=== PATIENT | female | born 1945 | race Caucasian/White ===

== ENCOUNTER 2016-07-27 12:58 | Emergency (ER) | payer MEDICARE, BC ==
[2016-07-27 13:41] LABS: BLOOD UREA NITROGEN 24 mg/dL (7-17); CALCIUM 10.6 mg/dL (8.4-10.2); CHLORIDE 97 mmol/L (98-107); EST GLOMERULAR FILTRATION RATE 47 mL/min; GLUCOSE 99 mg/dL (70-100); MAGNESIUM 1.8 mg/dL (1.6-2.3); POTASSIUM 4.3 mmol/L (3.5-5.1); SODIUM 132 mmol/L (137-145)
[2016-07-27 14:03] LABS: TROPONIN I < 0.012 ng/mL (0.00-0.034)
[2016-07-27 14:29] LABS: HEMATOCRIT 39.9 % (36.0-48.0); HEMOGLOBIN 13.8 g/dL (12.0-16.0); MEAN CELL VOLUME 93.3 fL (80.0-100.0); MEAN CORPUS. HGB CONCENTRATION 34.6 g/dL (32.0-36.0); MEAN CORPUSCULAR HEMOGLOBIN 32.3 pg (29.0-35.0); MEAN PLATELET VOLUME 7.8 fL (7.4-10.4); PLATELET COUNT 255 X 10^3uL (130-440); RED BLOOD COUNT 4.28 X 10^6uL (4.20-6.10); WHITE BLOOD COUNT 8.2 X 10^3uL (3.9-10.7)
[2016-07-27 14:30] LABS: BAND% (Manual) 7 % (0.0-1.0); BASOPHIL % (Manual) 0 % (0.0-2.0); EOSINOPHIL % (Manual) 0 % (0.0-6.0); LYMPHOCYTE % (Manual) 11 % (20.0-40.0); MONOCYTE % (Manual) 3 % (2.0-10.0); NEUTROPHIL % (Manual) 79 % (54.0-75.0); PLATELET ESTIMATE ADEQUATE
--- NOTE | 2016-07-27 16:38 | RADIOLOGY REPORT ---
HISTORY: COMPARISON: None. FINDINGS: 1 view of the chest obtained. Heart size and mediastinal contours are normal except for mild prominen ce of the aortic arch. Mild interstitial prominence is noted without focal infiltrate, effusion, or e camille. No pneumothorax. Mild thoracic scoliosis convex to the left is evident. IMPRESSION: No acute findings within the chest. Final Electronic Signature: This report was electronically signed by Logan Funk MD on 07/27/2016 4 :36 PM. ramona /
--- NOTE | 2016-07-27 16:43 | MRI REPORT ---
HISTORY: Difficult speaking and facial droop. TIA. COMPARISON: None. TECHNIQUE: Multiplanar multi sequential imaging of the brain obtained without IV gadolinium. FINDINGS: BRAIN: The midline structures are normal. No atrophy. Scattered nonspecific foci of FLAIR signal abno rmality in the cerebral white matter. No diffusion restriction. No hemorrhage. No hydrocephalus. No mass effect or midline shift. The major intracranial flow-voids are patent. BONES AND EXTRACRANIAL SOFT TISSUES: The orbits are unremarkable. The paranasal sinuses and mastoid a ir cells are clear. No gross bone lesion is identified. IMPRESSION: Normal brain MRI. Saroj Waller MD Neuroradiologist Final Electronic Signature: This report was electronically signed by Eldon Waller MD on 07/27/2016 4:40 PM. robby /
--- NOTE | 2016-07-27 16:45 | MRI REPORT ---
History: Stroke COMPARISON: None. TECHNIQUE: Multiplanar multi sequential imaging of the carotid and vertebral vessels obtained with and without c ontrast. 20cc Magnevist contrast. FINDINGS: The visualized portions of the aortic arch, innominate artery, and left and right subclavian arteries are widely patent. The common carotid arteries are widely patent. The external carotid arteries ar e widely patent. The vertebral arteries are widely patent. The internal carotid arteries are widely patent. IMPRESSION: Unremarkable MR angiogram of the carotid and vertebral vessels. No evidence for significant stenosis or occlusion. All stenosis percentages reference the distal internal carotid artery. Final Electronic Signature: This report was electronically signed by Logan Funk MD on 07/27/2016 4 :42 PM. ramona /
--- NOTE | 2016-07-27 16:50 | MRI REPORT ---
HISTORY: Transient ischemic attack. COMPARISON: Same day MRI brain TECHNIQUE: 3D time of flight imaging of the cra[place] of [place] was performed without contrast. FINDINGS: Internal carotid arteries: The skull base, cavernous and supraclinoid portions of the internal caroti d arteries are patent. Middle cerebral arteries: The middle cerebral arteries are widely patent Anterior cerebral arteries: A 3.4 x 2 x 3 mm outpouching at the anterior communicating artery is cons istent with a small saccular aneurysm. Vertebrobasilar system: The intradural vertebral arteries, basilar artery and posterior fossa branch vessels appear patent. Posterior cerebral arteries: The posterior cerebral arteries are widely patent. No aneurysm or arteriovenous malformation is seen. IMPRESSION: 1. No evidence of intracranial branch occlusion. 2. Small incidental anterior communicating artery aneurysm. Findings were called to ordering provider at 4:50 PM. Final Electronic Signature: This report was electronically signed by Eldon Waller MD on 07/27/2016 4:47 PM. robby /
--- NOTE | 2016-07-27 16:59 | ER NURSING DOCUMENTATION ---
Nurse's Notes [facility] Name:Kenisha Velásquez Age:71 yrs Sex:Female :1945 Arrival Date:07/27/2016 Time:12:58 BedTrauma-C Private MD: Diagnosis:Carotid TIA Presentation: 07/27 13:02 Acuity: OLIVA 2 13:47 Presenting complaint: Patient states: Pt [place] [employer] [address] [place] and felt rh dizzy, had left sided weakness and couldn't hold her water bottle. She then sat down ate some granola bars, drank water and returned to baseline and hiked out of the trail. Transition of care: Other RMNP. Time Last Known Well for patient was 1030. 13:47 Method Of Arrival: Walk In Triage Assessment: 13:49 The onset of the patients symptoms was more than three but less than six hours ago. rh General: Appears in no apparent distress, Behavior is cooperative. Pain: Denies pain. EENT: Oral mucosa is dry. Neuro: Level of Consciousness is awake, alert, obeys commands, Reports dizziness. Cardiovascular: Capillary refill < 3 seconds. Respiratory: Airway is patent Respiratory effort is even, unlabored, Respiratory pattern is regular, symmetrical, Denies shortness of breath. GI: Abdomen is non- distended Denies diarrhea, nausea, vomiting. : No deficits noted. Derm: Skin is intact, is healthy with good turgor, Skin is pink, warm & dry. Musculoskeletal: Circulation, motion, and sensation intact Range of motion intact in all extremities. Historical: - Allergies: SULFA (SULFONAMIDES); - Home Meds: 1. Aspirin Oral 2. Synthroid Oral - PMHx: vertigo; HYPOTHYROIDISM; - PSHx: LEFT HAND SURGERY ; - Tetanus: < 10 years. - Ebola Screening: : Patient negative for fever greater than or equal to 101.5 degrees Fahrenheit, and additional compatible Ebola Virus Disease symptoms. - Immunization history: Flu Vaccine < 1 year. - Social history: Smoking status: Patient states was never smoker of tobacco. Screenin:52 Infectious Disease Risk None. Abuse screen: Denies threats or abuse. Denies injuries rh from another. Nutritional screening: No deficits noted. Assessment: 13:52 See Triage Assessment done by same RN. 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 rh 16:12 Reassessment: Pt states feeling great, no complaints at this time. Waiting for MRI rh results . Vital Signs: 13:05 BP 121 / 74; Pulse 65; Resp 20; Temp 98.3(O); Pulse Ox 91% ; Weight 61.23 kg; Height 5 rh ft. 5 in. (165.10 cm); Pain 0/10; 14:20 BP 121 / 63; Pulse 65; Resp 18; Pulse Ox 98% on 2 lpm NC; rh 16:12 BP 123 / 68; Pulse 64; Resp 15; Pulse Ox 96% on R/A; Pain 0/10; rh 16:55 BP 124 / 67; Pulse 61; Resp 16; Pulse Ox 94% on R/A; Pain 0/10; lc 13:05 Body Mass Index 22.46 (61.23 kg, 165.10 cm) rh ED Course: 13:00 Patient arrived in ED. ama 13:02 Glo Hudson is Primary Nurse. rh 13:02 Triage completed. rh 13:05 Notified ED Physician of patient's arrival and chief complaint. Dr. Smith notified. rh 13:10 Inserted peripheral IV: 20 gauge in right antecubital area and blood collected. Oxygen rh Oxygen administration via nasal cannula @ 2L/min. 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 Pulse ox on. NIBP on. rh 13:16 Aren Smith MD is Attending Physician. tl1 13:16 EKG done. (by ED staff). Reviewed by Aren Smith MD. rh 13:52 Valuables Remains with patient Patient has correct armband on for positive rh identification. Placed in gown. Bed in low position. Call light in reach. Side rails up X 1. 14:03 Port Xray Completed. pm1 Administered Medications: 13:55 Drug: NS 0.9% 1000 ml; Route: IV; Rate: bolus; Site: right antecubital; rh 14:35 Follow up: IV Status: Completed infusion; IV Intake: 1000ml rh Intake: 14:35 IV: 1000ml; Total: 1000ml. rh Outcome: 16:42 Discharge ordered by . tl1 16:55 Discharged to home ambulatory, with family. 16:55 Condition: stable 16:55 Discharge Assessment: Patient awake, alert and oriented x 3. No cognitive and/or functional deficits noted. Patient verbalized understanding of disposition instructions. 16:55 Discharge instructions given to patient, family, Instructed on discharge instructions, follow up and referral plans. Demonstrated understanding of instructions, COPY OF MRI GIVEN 16:55 IV D/Chuy 16:58 Patient left the ED. janelle Signatures: Sharon Harrison, KINGA RN Lola Hooks pm1 Jad Nunez, Reg Reg Aren Vick MD MD tl1 Glo Hudson
--- NOTE | 2016-07-29 16:58 | ER PHYSICIAN DOCUMENTATION ---
Physician Documentation [facility] Name:Kenisha Velásquez Age:71 yrs Sex:Female :1945 Arrival Date:07/27/2016 Time:12:58 BedTrauma-C Private MD: Aren Antony Disposition: 07/29 10:31 Chart complete. tl1 Disposition: 07/27/16 16:42 Discharged to Home/Self Care. Impression: Carotid TIA. - Condition is Good. - Discharge Instructions: TIA. - Medical Reconciliation form form. - Follow up: Private Physician; When: 4- 6 days; Reason: Recheck today's complaints, Continuance of care. - Problem is new. - Symptoms have improved. 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 13:15 The patient presents to the emergency department with weakness of the a speech or tl1 higher order brain function problem. Onset: The symptom(s)/episode began/occurred suddenly, just prior to arrival. 13:20 She is an active healthy lady from [place], a regular runner, with a h/o vertigo tl1 and transent global amnesia, who is here visiting. [place] [employer] [place]30, she developed left arm weakness and slurred speech. These symptoms lasted about 10 minutes and resolved after she sat down and had a little bit to ear and drink. she was able to hike out, and after some initial resistance, was convinced to come to the ED for evaluation. She says she is fine now and has no new symptoms.. Historical: - Allergies: SULFA (SULFONAMIDES); - Home Meds: 1. Aspirin Oral 2. Synthroid Oral - PMHx: vertigo; HYPOTHYROIDISM; - PSHx: LEFT HAND SURGERY ; - Tetanus: < 10 years. - Ebola Screening: : Patient negative for fever greater than or equal to 101.5 degrees Fahrenheit, and additional compatible Ebola Virus Disease symptoms. - Immunization history: Flu Vaccine < 1 year. - Social history: Smoking status: Patient states was never smoker of tobacco. ROS: 13:20 Neuro: Positive for speech changes, weakness. tl1 13:20 All other systems are negative. Exam: 13:20 Constitutional: This is a well developed, well nourished patient who is awake, alert, tl1 and in no acute distress. Head/Face: Normocephalic, atraumatic. Eyes: Pupils equal round and reactive to light, extra-ocular motions intact. Lids and lashes normal. Conjunctiva and sclera are non-icteric and not injected. Cornea within normal limits. Periorbital areas with no swelling, redness, or edema. Neck: Trachea midline, no thyromegaly or masses palpated, and no cervical lymphadenopathy. Supple, full range of motion without nuchal rigidity, or vertebral point tenderness. No Meningismus. Cardiovascular: Regular rate and rhythm with a normal S1 and S2. No gallops, murmurs, or rubs. Normal PMI, no JVD. No pulse deficits. Respiratory: Lungs have equal breath sounds bilaterally, clear to auscultation and percussion. No rales, rhonchi or wheezes noted. No increased work of breathing, no retractions or nasal flaring. 13:20 Abdomen/GI: Soft, non-tender, with normal bowel sounds. No distension or tympany. No tl1 guarding or rebound. No evidence of tenderness throughout. 13:20 Neuro: Orientation: is normal, Mentation: is normal, Memory: is normal, Cranial nerves: CN II- XII are normal as tested, Motor: strength is 5/5 in all extremities, Sensation: light touch sense is normal, Gait: is steady, at a normal pace, without difficulty, appropriate for age, Deep tendon reflexes are 2+ (normal) in the right brachioradialis, right patellar, left brachioradialis and left patellar. Vital Signs: 13:05 BP 121 / 74; Pulse 65; Resp 20; Temp 98.3(O); Pulse Ox 91% ; Weight 61.23 kg; Height 5 rh ft. 5 in. (165.10 cm); Pain 0/10; 14:20 BP 121 / 63; Pulse 65; Resp 18; Pulse Ox 98% on 2 lpm NC; rh 16:12 BP 123 / 68; Pulse 64; Resp 15; Pulse Ox 96% on R/A; Pain 0/10; rh 16:55 BP 124 / 67; Pulse 61; Resp 16; Pulse Ox 94% on R/A; Pain 0/10; lc 13:05 Body Mass Index 22.46 (61.23 kg, 165.10 cm) rh MDM: 13:20 The patient was last known to be well at July 27, 2016 at 10:30. Thrombolytics: No tl1 thrombolytic given symptoms have resolved. Data reviewed: vital signs, nurses notes, lab test result(s), cardiac enzymes, CBC, electrolytes, hepatic panel, EKG, radiologic studies, MRI, and as a result, I will discharge patient. Data interpreted: residential monitor: Pulse oximetry:. Counseling: I had a detailed discussion with the patient and/or guardian regarding: the historical points, exam findings, and any diagnostic results supporting the discharge/admit diagnosis, lab results, radiology results, the need for outpatient follow up, for definitive care, a neurologist, to return to the emergency department if symptoms worsen or persist or if there are any questions or concerns that arise at home. ECG:. 13:25 Patient medically screened. [facility] 13:25 ECG:. 1 07/29 10:21 ED course: She was asymptomatic. She already takes a baby aspirin a day. She seems like tl1 she should be low risk, but she has had 3 major neurologic events in the last few years and I am concerned about a possible hypercoagulable state or some cardiac (?valvular) abnormality. 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 07/27 14:03 Order name: BASIC METABOLIC PANEL; Complete Time: 16:04 EDKS 07/27 16:03 Interpretation: SODIUM 132; POTASSIUM 4.3; CHLORIDE 97; CARBON DIOXIDE 26; GLUCOSE 99; tl1 BLOOD [place] NITROGEN 24; CREATININE 1.2; EST GLOMERULAR FILTRATION RATE 47; CALCIUM 10.6. 07/27 14:03 Order name: MAGNESIUM; Complete Time: 16:04 EDKS 07/27 16:03 Interpretation: Normal: MAGNESIUM 1.8. tl1 07/27 14:03 Order name: TROPONIN I; Complete Time: 16:04 EDKS 07/27 16:03 Interpretation: Normal: TROPONIN I < 0.012. [facility] 07/27 14:29 Order name: CBC WITHOUT A DIFFERENTIAL; Complete Time: 16:04 EDMS 07/27 16:04 Interpretation: WHITE BLOOD COUNT 8.2; HEMOGLOBIN 13.8; HEMATOCRIT 39.9; PLATELET COUNT tl1 255. 07/27 14:31 Order name: MANUAL DIFFERENTIAL; Complete Time: 16:04 EDMS 07/27 16:04 Interpretation: NEUTROPHIL % (Manual) 79; BAND% (Manual) 7; LYMPHOCYTE % (Manual) 11; tl1 MONOCYTE % (Manual) 3. 07/27 16:39 Order name: CHEST; SINGLE VIEW [id number]; Complete Time: 16:41 EDMS 07/27 16:41 Interpretation: NAD. See radiologist report. 1 07/27 16:43 Order name: BRAIN W/O CONTRAST [id number]; Complete Time: 09:58 EDMS 07/27 16:46 Order name: MRA; NECK W/WO [id number]; Complete Time: 09:58 EDMS 07/29 09:56 Interpretation: Normal: See radiologist note. 1 07/27 16:51 Order name: MRA; BRAIN W/O [id number]; Complete Time: 09:58 EDMS 07/29 09:57 Interpretation: Normal Except: Small LASHONDA aneurysm. [facility] 07/27 13:14 Order name: 12-lead EKG; Complete Time: 13:22 07/27 13:14 Order name: Iv Saline Lock; Complete Time: 13:22 07/27 13:14 Order name: Place Patient On Monitor; Complete Time: 13:22 07/27 13:14 Order name: Pulse Ox Continuous; Complete Time: 13:22 rh EC/17 13:25 Rhythm is regular, Normal Sinus Rhythm. QRS [place] is Normal. [place] interval is normal. QRS tl1 interval is normal. QT interval is normal. No Q waves. T waves are Normal. No ST changes noted. Clinical impression: Normal ECG. Interpreted by me. Reviewed by me. Dispensed Medications: 13:55 Drug: NS 0.9% 1000 ml; Route: IV; Rate: bolus; Site: right antecubital; rh 14:35 Follow up: IV Status: Completed infusion; IV Intake: 1000ml rh Signatures: Sharon Harrison RN RN lc Leigh, Tom, MD MD tl1 Glo Hudson
== END 2016-07-27 16:59 | disposition home or self-care (01) ==
LOC: ER 12:58
DX: G45.8 Other transient cerebral ischemic attacks and related syndromes (principal); R47.81 Slurred speech; R53.1 Weakness; Z79.82 Long term (current) use of aspirin
CPT/HCPCS: 70544; 70549; 70551; 71010; 80048; 83735; 84484; 85007; 85027; 93005; 96360; 99285